=== PATIENT | female | born 1965 | race Caucasian/White ===

== ENCOUNTER 2021-05-14 10:29 | Observation (INO) | payer OTHER ==
[~2021-05-14] VITALS: Ht 165.1 cm; Wt 87.1 kg
[2021-05-14 12:20] LABS: HEMOGLOBIN 13.8 gm/dl (12.3-15.3); RED BLOOD COUNT 4.97 M/UL (4.00-5.10); WHITE BLOOD COUNT 18.1 K/UL (4.5-11.0)
[2021-05-14 12:57] LABS: BUN/CREATININE RATIO 9 (0-10)
[2021-05-15] MEDS ORDERED: KLONOPIN TAB 00.5 MG PO (03:39)
[2021-05-15] MEDS ORDERED: GABAPENTIN800 MG PO (03:39)
[2021-05-15 07:41] LABS: HEMOGLOBIN 11.1 gm/dl (12.3-15.3); RED BLOOD COUNT 4.01 M/UL (4.00-5.10); WHITE BLOOD COUNT 13.3 K/UL (4.5-11.0)
[2021-05-15 07:59] LABS: BUN/CREATININE RATIO 8 (0-10)
[2021-05-15] MEDS ORDERED: AUGMENTIN 875-1 EACH PO (10:31)
== END 2021-05-15 11:30 | disposition home or self-care (01) ==
LOC: ER1 10:29 → CDU 17:47 → CCU 17:47
PROVIDERS: Emergency Medicine; ADMIT Surgery
DX: R10.31 Right lower quadrant pain (principal); Z20.822 Contact with and (suspected) exposure to COVID-19; R63.0 Anorexia; G62.9 Polyneuropathy, unspecified; F17.290 Nicotine dependence, other tobacco product, uncomplicated; Z68.31 Body mass index [BMI] 31.0-31.9, adult; Z79.899 Other long term (current) drug therapy
CPT/HCPCS: 80048; 80053; 81001; 83690; 85025; 87040; 96365; 96375; 96376; 99284; G0378; J1885; J2270; J2405; J2543; Q9967; U0002

== ENCOUNTER 2021-07-31 12:52 | Emergency (ER) | payer OTHER ==
[~2021-07-31 12:52] MED LIST: AUGMENTIN 875-1 EACH PO; GABAPENTIN800 MG PO; KLONOPIN TAB 00.5 MG PO
[2021-07-31] MEDS ORDERED: CLARITIN10 MG PO (13:27)
[2021-07-31] MEDS ORDERED: AFRIN15 M1 (13:27)
[2021-07-31] MEDS ORDERED: CEFDINIR300 MG PO (13:27)
== END 2021-07-31 13:39 | disposition home or self-care (01) ==
LOC: ER1 12:52
DX: H66.91 Otitis media, unspecified, right ear (principal); F17.290 Nicotine dependence, other tobacco product, uncomplicated
CPT/HCPCS: 99282

== ENCOUNTER 2021-08-12 18:48 | Emergency (ER) | payer OTHER ==
[~2021-08-12 18:48] MED LIST changes: +AFRIN15 M1; +CEFDINIR300 MG PO; +CLARITIN10 MG PO
[2021-08-12 19:54] LABS: HEMOGLOBIN 13.1 gm/dl (12.3-15.3); RED BLOOD COUNT 4.58 M/UL (4.00-5.10); WHITE BLOOD COUNT 11.1 K/UL (4.5-11.0)
[2021-08-12 20:12] LABS: BUN/CREATININE RATIO 15 (0-10)
[2021-08-12] MEDS ORDERED: NAPROSYN500 MG PO (23:19)
[2021-08-12] MEDS ORDERED: CYCLOBENZAPRINE5 MG PO (23:19)
== END 2021-08-12 23:22 | disposition home or self-care (01) ==
LOC: ER1 18:48
PROVIDERS: Student in an Organized Health Care Education/Training Program
DX: N20.0 Calculus of kidney (principal); K80.80 Other cholelithiasis without obstruction; F17.290 Nicotine dependence, other tobacco product, uncomplicated
CPT/HCPCS: 80053; 81001; 85025; 87086; 96372; 99284; J1885

== ENCOUNTER → 2021-09-18 | Outpatient (CLI) | payer OTHER ==
[~2021-09-18] MED LIST changes: +CYCLOBENZAPRINE5 MG PO; +NAPROSYN500 MG PO
== END ==
LOC: KOH-I 14:48
DX: J01.81 Other acute recurrent sinusitis (principal)
CPT/HCPCS: 70486